=== PATIENT | female | born 1960 | race Caucasian/White ===

== ENCOUNTER → 2019-11-30 | Outpatient (CLI) | payer BC ==
[~2019-11-30] VITALS: Ht 160 cm; Wt 116.0 kg
[~2019-11-30] MED LIST: ASP325T; ASP325T PO; ASP81TEC PO; ATOR40TA; ATOR40TA PO; AZTH250C PO; CATHETER FLUSH 10 ML SYR IV PRN; CLOP75TA28 PO; IBUP-30 PO; INSU100C4 SQ; INSU100I10 SQ; KCL10CCR PO; LISI10TA2 PO; LISI5TAB PO; LNZ600T PO; MECL-124 PO; MGX400T PO; MTF500T; MTF500T PO; MTP100TCR PO; NITR0.4T SL; PGLT30T PO; REGADENOSON 0.4 MG/5 ML SYR (LEXISCAN) IV ONE; SAXA1TBM2 PO; SITA1TAB6 PO; TRIA1TAB3 PO; [UNRECOGNIZED DRUG - CODE] PO
[2019-11-30 09:59] VITALS: BP 168/66
--- NOTE | 2019-11-30 17:16 | STRESS TEST ---
DATE OF SERVICE: 11/30/2019 RESTING AND POST REGADENOSON TECHNETIUM-99M TETROFOSMIN SPECT CT IMAGING ORDERING PHYSICIAN: Juli Mendoza APRN PRIMARY PHYSICIAN: Dr. More. CLINICAL DIAGNOSIS: Coronary artery disease. Baseline images were carried out after injection of 10.88 mCi of technetium-99m Tetrofosmin. This was followed by 0.4 mg regadenoson and 31 mCi of technetium-99m Tetrofosmin for stress imaging. The electrocardiogram showed sinus rhythm at baseline. There was nonspecific ST abnormality. The electrocardiogram did not change significantly with regadenoson infusion. The patient tolerated the procedure well. Review of images at rest and following stress does not indicate any significant perfusion defects consistent with myocardial ischemia or infarction. Gated images show normal global left ventricular systolic function with normal regional wall motion. Left ventricular ejection fraction is calculated to be 75%. Left ventricular end-diastolic volume is 33 mL. TID is absent (1.09). CONCLUSIONS: 1. No evidence of any significant myocardial ischemia or infarction on this study. 2. Normal regional wall motion. 3. Normal global left ventricular systolic function with a calculated ejection fraction of 75%. Job ID: [id number] DocumentID: [id number] Dictated Date: 11/30/2019 15:47:08 Medical Consultant Date: 11/30/2019 17:15:53 Dictated By: MELVA HANLEY MD, MA, FACP, FACC,
== END ==
LOC: CARD 08:23
PROVIDERS: ATTEND Nurse Practitioner Family
DX: I25.10 Atherosclerotic heart disease of native coronary artery without angina pectoris (principal)
CPT/HCPCS: 78452; 93017; A9502